=== PATIENT | male | born 1995 | race Two or more races ===

== ENCOUNTER 2018-06-16 18:09 | Emergency (ER) | payer OTHER ==
[2018-06-16 19:55] LABS: ABS Basophils 0 10^3/ul (0-0.2); ABS Eosinophils 0 10^3/ul (0-0.6); ABS Lymphocytes 1.4 10^3/ul (1.0-4.8); ABS Monocytes 1.4 10^3/ul (0-0.8); ABS Neutrophils 13.7 10^3/ul (1.5-7.7); ABS Nucleated RBC 0 10^3/ul; Eosinophil % 0.3 % (0-6); Hematocrit 48 % (42-52); Hemoglobin 16.3 g/dl (14.0-18.0); Lymphocyte % 8.3 % (25-47); Mean Corpuscular HGB Conc 34 g/dl (31-36); Mean Corpuscular Hemoglobin 32 pg (27-31); Mean Corpuscular Volume 95 fL (80-94); Mean Platelet Volume 9.6 um3 (7.4-10.4); Nucleated Red Blood Cells % 0; Platelet Count 137 10^3/ul (150-450); Red Blood Count 5.03 10^6/ul (4.00-5.40); Red Cell Distribution Width 14 % (10.5-15); White Blood Count 16.5 10^3/ul (3.5-10.8)
[2018-06-16 20:01] LABS: INR 0.94 (0.77-1.02)
[2018-06-16 20:23] LABS: EGFR Non-African American 102.3 (>60)
[2018-06-16] MEDS ORDERED: ceFAZolin 1 GM in Dextrose (*) 1 GM/50 ML BAG IVPB ONE (22:14)
--- NOTE | 2018-06-16 22:14 | ED ---
Neurological HPI - HPI Summary HPI Summary: Time seen by doctor: 22:00. The patient is a 22 y/o M presenting to [facility] with a chief complaint of having a seizure tonight. During the seizure, he was in the shower, so he fell out of the shower onto the concrete floor, hitting his face. He now has a laceration to his submandibular chin, and he is c/o jaw pain. The pain is rated 8/10 in severity. Per it security manager report, the patient was on the ground for almost a minute before getting up. He has had one seizure about four years ago. - History of Current Complaint Chief Complaint: EDSeizure Stated Complaint: SEIZURE/FALL Time Seen by Provider: 06/16/18 21:53 Hx Obtained From: Patient Onset/Duration: Sudden Onset, Started hours ago, Resolved Timing: Constant Onset Severity: Severe Current Severity: Mild Seizure Severity: Moderate Number of Seizures: 1 Pain Intensity: 8 Pain Scale Used: 0-10 Numeric Character: Other: - pain in jaw, laceration to chin Episode Lasting: Seconds/Minutes - about a minute Syncope Context: Unwitnessed Seizure Character: Generalized Aggravating: Unknown Associated Signs and Symptoms: Positive: Seizure - Allergy/Home Medications Allergies/Adverse Reactions: Allergies Allergy/AdvReac Type Severity Reaction Status Date / Time No Known Allergies Allergy Verified 06/16/18 18:57 PMH/Surg Hx/FS Hx/Imm Hx Respiratory History: Denies: Hx Asthma Sensory History: Denies: Hx Deafness Opthamlomology History: Denies: Hx Legally Blind EENT History: Denies: Hx Deafness Infectious Disease History: No Infectious Disease History: Denies: Traveled Outside the [place] in Last 30 Days - Family History Known Family History: Negative: Diabetes - Social History Alcohol Use: None Substance Use Type: Reports: None Smoking Status (MU): Former Smoker Review of Systems Positive: Other - pain in jaw Positive: Other - laceration to submandibular region Neurological: Other - seizure All Other Systems Reviewed And Are Negative: Yes Physical Exam - Summary Physical Exam Summary: Appearance: Well-appearing, Well-nourished, lying in bed comfortable Skin: Warm, dry, no obvious rash Eyes: sclera anicteric, no conjunctival pallor ENT: mucous membranes moist. 2.5 cm laceration point of the chin, small superficial laceration less than 1 cm skin below lower lip midline. Tender mid and right mandible, no obvious deformity Neck:Negative, normal RO<M Respiratory: No signs of respiratory distress Cardiovascular: Appears well perfused, pulses are nml Abdomen: deferred Musculoskeletal: Moving all 4 extremities without obvious discomfort Neurological: Awake and alert, mentation is normal, speech is fluent and appropriate NIH: 0 Psychiatric: affect is normal, does not appear anxious or depressed Triage Information Reviewed: Yes Vital Signs On Initial Exam: Initial Vitals Temp Pulse Resp BP Pulse Ox 98.7 F 62 16 123/72 98 06/16/18 18:52 06/16/18 18:52 06/16/18 18:52 06/16/18 18:52 06/16/18 18:52 Vital Signs Reviewed: Yes Diagnostics - Vital Signs Vital Signs Temp Pulse Resp BP Pulse Ox 06/16/18 20:26 98.5 F 63 18 104/74 100 06/16/18 18:52 98.7 F 62 16 123/72 98 - Laboratory Lab Results: Lab Results 06/16/18 06/16/18 06/16/18 Range/Units 19:49 19:49 19:49 WBC 16.5 H (3.5-10.8) 10^3/ul RBC 5.03 (4.00-5.40) 10^6/ul Hgb 16.3 (14.0-18.0) g/dl Hct 48 (42-52) % MCV 95 H (80-94) fL MCH 32 H (27-31) pg MCHC 34 (31-36) g/dl RDW 14 (10.5-15) % Plt Count 137 L (150-450) 10^3/ul MPV 9.6 (7.4-10.4) um3 Neut % (Auto) 82.9 (38-83) % Lymph % (Auto) 8.3 L (25-47) % [place] % (Auto) 8.4 H (0-7) % Eos % (Auto) 0.3 (0-6) % Baso % (Auto) 0.1 (0-2) % Absolute Neuts (auto) 13.7 H (1.5-7.7) 10^3/ul Absolute Lymphs (auto) 1.4 (1.0-4.8) 10^3/ul Absolute Monos (auto) 1.4 H (0-0.8) 10^3/ul Absolute Eos (auto) 0 (0-0.6) 10^3/ul Absolute Basos (auto) 0 (0-0.2) 10^3/ul Absolute Nucleated RBC 0 10^3/ul Nucleated RBC % 0 INR (Anticoag Therapy) 0.94 (0.77-1.02) Sodium 137 (135-145) mmol/L Potassium 4.8 (3.5-5.0) mmol/L Chloride 102 (101-111) mmol/L Carbon Dioxide 28 (22-32) mmol/L Anion Gap 7 (2-11) mmol/L BUN 10 (6-24) mg/dL Creatinine 0.94 (0.67-1.17) mg/dL Est GFR ( Amer) 123.8 (>60) Est GFR (Non-Af Amer) 102.3 (>60) BUN/Creatinine Ratio 10.6 (8-20) Glucose 90 (70-100) mg/dL Lactic Acid (0.5-2.0) mmol/L Calcium 10.2 (8.6-10.3) mg/dL Magnesium 1.9 (1.9-2.7) mg/dL Total Bilirubin 0.50 (0.2-1.0) mg/dL AST 33 (13-39) U/L ALT 27 (7-52) U/L Alkaline Phosphatase 66 (34-104) U/L Total Protein 7.8 (6.4-8.9) g/dL Albumin 5.2 (3.2-5.2) g/dL Globulin 2.6 (2-4) g/dL Albumin/Globulin Ratio 2.0 (1-3) 06/16/18 Range/Units 19:49 WBC (3.5-10.8) 10^3/ul RBC (4.00-5.40) 10^6/ul Hgb (14.0-18.0) g/dl Hct (42-52) % MCV (80-94) fL MCH (27-31) pg MCHC (31-36) g/dl RDW (10.5-15) % Plt Count (150-450) 10^3/ul MPV (7.4-10.4) um3 Neut % (Auto) (38-83) % Lymph % (Auto) (25-47) % [place] % (Auto) (0-7) % Eos % (Auto) (0-6) % Baso % (Auto) (0-2) % Absolute Neuts (auto) (1.5-7.7) 10^3/ul Absolute Lymphs (auto) (1.0-4.8) 10^3/ul Absolute Monos (auto) (0-0.8) 10^3/ul Absolute Eos (auto) (0-0.6) 10^3/ul Absolute Basos (auto) (0-0.2) 10^3/ul Absolute Nucleated RBC 10^3/ul Nucleated RBC % INR (Anticoag Therapy) (0.77-1.02) Sodium (135-145) mmol/L Potassium (3.5-5.0) mmol/L Chloride (101-111) mmol/L Carbon Dioxide (22-32) mmol/L Anion Gap (2-11) mmol/L BUN (6-24) mg/dL Creatinine (0.67-1.17) mg/dL Est GFR ( Amer) (>60) Est GFR (Non-Af Amer) (>60) BUN/Creatinine Ratio (8-20) Glucose (70-100) mg/dL Lactic Acid 1.3 (0.5-2.0) mmol/L Calcium (8.6-10.3) mg/dL Magnesium (1.9-2.7) mg/dL Total Bilirubin (0.2-1.0) mg/dL AST (13-39) U/L ALT (7-52) U/L Alkaline Phosphatase (34-104) U/L Total Protein (6.4-8.9) g/dL Albumin (3.2-5.2) g/dL Globulin (2-4) g/dL Albumin/Globulin Ratio (1-3) Result Diagrams: 06/16/18 19:49 06/16/18 19:49 Lab Statement: Any lab studies that have been ordered have been reviewed, and results considered in the medical decision making process. - CT Maxillofacial CT CT Interpretation: Positive (See Comments) - 1. Nondisplaced fracture of the anterior mandible extending between teeth #24 and 25 and along the root of tooth #24. 2. Nondisplaced fracture of the right mandibular ramus extending posteriorly and caudal from the mandibular notch. 3. Soft tissue injury of the midline lower lip with radiopaque foreign bodies extending along the tract from the skin surface to the buccal aspect of the lip. ED physician has reviewed this report. CT Interpretation Completed By: Radiologist - EKG 21:05 Cardiac Rate: Bradycardia - 54 BPM EKG Rhythm: Sinus Bradycardia Course/Dx - Course Course Of Treatment: This is a 22-year-old who fell in half-way, either had a seizure or fell with some other mechanism. His sole injury is a fracture of the mandible which may be open as he has a deep laceration on the point of the chin adjacent to one of the fracture lines. Arrangements are made to transfer him to [facility] for oral maxillofacial evaluation. He has been given a dose of Kefzol. - Diagnoses Provider Diagnoses: Open fracture of mandible Discharge - Sign-Out/Discharge Documenting (check all that apply): Patient Departure - Patient will be transferred to - Discharge Plan Condition: Fair Disposition: TRANS HIGHER LVL OF CARE FAC Referrals: Juancho Harris MD [Primary Care Provider] - - Billing Disposition and Condition Condition: FAIR Disposition: Trans Higher Lvl of Care Fac - Attestation Statements Document Initiated by Scribe: Yes Documenting Scribe: Antonia Joyner Provider For Whom Daniel is Documenting (Include Credential): Dr. Waqar King MD Scribe Attestation: Antonia Pisano scribed for Dr. Waqar King MD on 06/16/18 at 2327. Scribe Documentation Reviewed: Yes Provider Attestation: The documentation as recorded by the Antonia robbins accurately reflects the service I personally performed and the decisions made by me, Dr. Waqar King MD
--- NOTE | 2018-06-16 22:35 | RAD ---
EXAM: CT Maxillofacial Without Intravenous Contrast EXAM DATE/TIME: Exam ordered 06/16/2018 9:27 PM CLINICAL HISTORY: 22 years old, male; Pain; Other: Pt brought in from [facility] for a possible seizure in the shower at approx 1600, pt struck his jaw on the floor needs sutures, ? jaw fracture. ; Additional info: Trauma from seizure TECHNIQUE: Axial computed tomography images of the face without intravenous contrast. All CT scans at this facility use at least one of these dose optimization techniques: automated exposure control; mA and/or kV adjustment per patient size (includes targeted exams where dose is matched to clinical indication); or iterative reconstruction. Coronal and sagittal reformatted images were created and reviewed. COMPARISON: No relevant prior studies available. FINDINGS: Bones/joints: Nondisplaced fracture of the anterior mandible extending between teeth #24 and 25 and along the root of tooth #24. Nondisplaced fracture extending to the right mandibular ramus extending posteriorly and slightly caudal from the mandibular notch. Soft tissues: Radiopaque foreign bodies extending through the lower lip and are of uncertain source. Orbits: Unremarkable. Sinuses: Unremarkable. No air-fluid levels. IMPRESSION: 1. Nondisplaced fracture of the anterior mandible extending between teeth #24 and 25 and along the root of tooth #24. 2. Nondisplaced fracture of the right mandibular ramus extending posteriorly and caudal from the mandibular notch. 3. Soft tissue injury of the midline lower lip with radiopaque foreign bodies extending along the tract from the skin surface to the buccal aspect of the lip. To contact [facility] with a general question: [facility] - [phone] For direct physician to physician contact: Physician Hotline - [phone] [facility] ([facility] Facility ID #[id number])
[2018-06-16] MEDS ORDERED: Morphine VIAL* 4 MG/ML VIAL (1 ml vial) IV ONE (23:38)
[2018-06-16] MEDS ORDERED: Ondansetron INJ* 2 MG/ML VIAL IV ONE (23:39)
[2018-06-16] MEDS ORDERED: Morphine INJ* 4 MG/ML 1 ML SYRINGE (NEW SYRINGE VERSION) ONE (23:44)
[2018-06-17 00:23] VITALS: BP 115/76
== END 2018-06-17 00:16 | disposition short-term general hospital (02) ==
LOC: ED 18:09
DX: S02.609B Fracture of mandible, unspecified, initial encounter for open fracture (principal); R56.9 Unspecified convulsions; R68.84 Jaw pain; W19.XXXA Unspecified fall, initial encounter; Y92.149 Unspecified place in prison as the place of occurrence of the external cause; Z87.891 Personal history of nicotine dependence
CPT/HCPCS: 36415; 70486; 80053; 83605; 83735; 85025; 85610; 93005; 96365; 96375; 99284; J0690; J2270; J2405